=== PATIENT | female | born 1985 | race Caucasian/White ===

== ENCOUNTER 2017-09-11 12:00 | Emergency (ER) | payer MEDICAID, OTHER ==
[2017-09-11 12:00] VITALS: BMI 30.2
[2017-09-11 12:16] VITALS: BP 118/79; PULSE 83; RESP 18; TEMP 97.8; O2SAT 98
[2017-09-11] MEDS ORDERED: Tetracaine 0.5% Ophth (OR ONLY) OU STA (12:18)
[2017-09-11] MEDS ORDERED: Fluorescein 1 mg Ophthalmic Strip OS STA (12:18)
[2017-09-11] MEDS ORDERED: Fluorescein 1 mg Ophthalmic Strip ONE (12:28)
[2017-09-11] MEDS ORDERED: Tetracaine 0.5% Ophth (OR ONLY) ONE (12:29)
[2017-09-11] MEDS ORDERED: Ciprofloxacin 0.3% OPTH SOLN OS STA (12:46)
[2017-09-11] MEDS ORDERED: Ciprofloxacin 0.3% OPTH SOLN ONE (12:54)
--- NOTE | 2017-09-11 12:57 | C.PDOC ---
Time Seen by Provider: 09/11/17 12:15 Chief Complaint (Nursing): Eye Problem Past Medical History Family History: States: Unknown Family Hx - Social History Hx Tobacco Use: No Hx Alcohol Use: No Hx Substance Use: No - Immunization History Hx Tetanus Toxoid Vaccination: Yes Hx Influenza Vaccination: No Hx Pneumococcal Vaccination: No Vital Signs: Last Vital Signs Temp 97.8 F 09/11/17 12:10 Pulse 83 09/11/17 12:10 Resp 18 09/11/17 12:10 BP 118/79 09/11/17 12:10 Pulse Ox 98 09/11/17 13:04 - [facility] Procedures CLOSURE SKIN & SUBCUTANEOUS NEC (07/15/13) NASAL LACERATION SUTURE (11/15/13) TETANUS TOXOID ADMINIST (11/15/13) ED Course And Treatment O2 Sat by Pulse Oximetry: 98 Disposition - Disposition Disposition Time: 12:53 - Disposition Referrals: Bakari Rey MD [Staff Provider] - Disposition: HOME/ ROUTINE Condition: STABLE Additional Instructions: Follow up with PMD and Vascular Surgeon tomorrow after 8 am. Return to ED if feel worse. Prescriptions: Ciprofloxacin 0.3% [Ciloxan 0.3% Ophth SOLN] 1 drop OS Q1 #1 bottle Acetaminophen/Codeine [Tylenol/Codeine 300 MG/30 MG] 1 ea PO .Q4-6H #20 tab Instructions: How to Use Eye Drops Forms: [facility] (Nepali) - Clinical Impression Clinical Impression: Eye infection
--- NOTE | 2017-09-11 13:44 | C.PDOC ---
History Of Present Illness 32 y/o female presents to the ED complaining of 2-3 days of left eye pain and redness. Patient states prior to onset of symptoms she had slept in her contacts. She began using artificial tears with no improvement, prompting her to come to the ED for further evaluation. No visual changes. Time Seen by Provider: 09/11/17 12:15 Chief Complaint (Nursing): Eye Problem History Per: Patient History/Exam Limitations: no limitations Onset/Duration Of Symptoms: Days (x3) Current Symptoms Are (Timing): Still Present Wears Contact Lens?: Yes Past Medical History Reviewed: Historical Data, Nursing Documentation, Vital Signs Vital Signs: Last Vital Signs Temp 97.8 F 09/11/17 12:10 Pulse 83 09/11/17 12:10 Resp 18 09/11/17 12:10 BP 118/79 09/11/17 12:10 Pulse Ox 98 09/11/17 13:46 - Medical History PMH: No Chronic Diseases Surgical History: (x1) - [facility] Procedures CLOSURE SKIN & SUBCUTANEOUS NEC (07/15/13) NASAL LACERATION SUTURE (11/15/13) TETANUS TOXOID ADMINIST (11/15/13) Family History: States: Unknown Family Hx - Social History Hx Tobacco Use: Yes Hx Alcohol Use: No Hx Substance Use: No - Immunization History Hx Tetanus Toxoid Vaccination: Yes Hx Influenza Vaccination: No Hx Pneumococcal Vaccination: No Review Of Systems Except As Marked, All Systems Reviewed And Found Negative. Constitutional: Negative for: Fever, Chills Eyes: Positive for: Pain, Redness. Negative for: Vision Change Physical Exam - Physical Exam Appears: Non-toxic, No Acute Distress Skin: Normal Color, Warm, Dry Head: Atraumatic, Normacephalic Eye(s): bilateral: PERRL, EOMI, left: Other (mild erythema; Examination with Fluorescein small 2mm foreign body vs ulcer at the bottom at 9 oclock of left eye) Nose: Normal Oral Mucosa: Moist Neurological/Psych: Oriented x3, Normal Speech ED Course And Treatment O2 Sat by Pulse Oximetry: 98 (RA) Pulse Ox Interpretation: Normal - Physician Consult Information Time Consulting Physician Contacted: 12:40 Physician Contacted: Bakari Rey Outcome Of Conversation: Instructed to start patient on ciprofloxacin eye drops and patient will follow up in the office tomorrow morning Disposition Discussed With : Bakari Rey Doctor Will See Patient In The: Office Counseled Patient/Family Regarding: Diagnosis, Need For Followup, Rx Given - Disposition Referrals: Bakari Rey MD [Staff Provider] - Disposition: HOME/ ROUTINE Disposition Time: 12:53 Condition: STABLE Additional Instructions: Follow up with PMD and Assistant Controller tomorrow after 8 am. Return to ED if feel worse. Prescriptions: Ciprofloxacin 0.3% [Ciloxan 0.3% Ophth SOLN] 1 drop OS Q1 #1 bottle Acetaminophen/Codeine [Tylenol/Codeine 300 MG/30 MG] 1 ea PO .Q4-6H #20 tab Instructions: How to Use Eye Drops Forms: [facility] (Icelandic) - POA Present On Arrival: None - Clinical Impression Clinical Impression: Eye infection - PA / INCOMING FREIGHT CLERK / Resident Statement MD/DO has reviewed & agrees with the documentation as recorded. - Scribe Statement The provider has reviewed the documentation as recorded by the Scribe (Nataly Back) All medical record entries made by the Scribe were at my direction and personally dictated by me. I have reviewed the chart and agree that the record accurately reflects my personal performance of the history, physical exam, medical decision making, and the department course for this patient. I have also personally directed, reviewed, and agree with the discharge instructions and disposition.
== END 2017-09-11 13:20 | disposition home or self-care (01) ==
LOC: C.ER 12:00
DX: H44.002 Unspecified purulent endophthalmitis, left eye (principal)

== ENCOUNTER 2018-06-02 19:59 | Emergency (ER) | payer MEDICAID ==
[2018-06-02 19:59] VITALS: BMI 30.2
[2018-06-02 20:13] VITALS: TEMP 98.2
--- NOTE | 2018-06-02 20:45 | C.PDOC ---
History Of Present Illness 33 year old female who is currently 17 weeks with prior history of miscarriage and ectopic presents to the ED complaining of vaginal bleeding. Reports bright red vaginal bleeding status post having intercourse with her significant other yesterday. Notes she continues bleeding today and now blood is thick, dark and coagulated. Also complains of mild discomfort to left lower quadrant that began today. Patient receives care at [facility] but has not received an ultrasound for the current . Denies any fever, chills, dysuria, hematuria, nausea, vomiting, shortness of breath, chest pain, back pain, or any other associated symptoms. Time Seen by Provider: 06/02/18 20:19 Chief Complaint (Nursing): Female Genitourinary History Per: Patient History/Exam Limitations: no limitations Onset/Duration Of Symptoms: Days (1) Current Symptoms Are (Timing): Still Present Quality Of Discomfort: Other (discomfort) Associated Symptoms: Urinary Symptoms. denies: Fever, Chills, Nausea, Vomiting, Diarrhea, Back Pain Past Medical History Reviewed: Historical Data, Nursing Documentation, Vital Signs Vital Signs: Last Vital Signs Temp 98.2 F 06/02/18 20:11 Pulse 100 H 06/02/18 20:11 Resp 20 06/02/18 20:11 BP 114/83 06/02/18 20:11 Pulse Ox 100 06/02/18 20:11 - Medical History PMH: No Chronic Diseases Surgical History: (x1) - [facility] Procedures CLOSURE SKIN & SUBCUTANEOUS NEC (07/15/13) NASAL LACERATION SUTURE (11/15/13) TETANUS TOXOID ADMINIST (11/15/13) Family History: States: No Known Family Hx - Social History Hx Tobacco Use: Yes Hx Alcohol Use: No Hx Substance Use: No - Immunization History Hx Tetanus Toxoid Vaccination: Yes Hx Influenza Vaccination: No Hx Pneumococcal Vaccination: No Review Of Systems Constitutional: Negative for: Fever, Chills Cardiovascular: Negative for: Chest Pain Respiratory: Negative for: Shortness of Breath Gastrointestinal: Positive for: Abdominal Pain. Negative for: Nausea, Vomiting, Diarrhea Genitourinary: Positive for: Vaginal Bleeding. Negative for: Dysuria, Hematuria Musculoskeletal: Negative for: Back Pain Physical Exam - Physical Exam Appears: Non-toxic, No Acute Distress Skin: Warm, Dry, No Rash Head: Normacephalic Eye(s): bilateral: Normal Inspection Nose: Normal Oral Mucosa: Moist Neck: Supple Chest: Symmetrical Cardiovascular: Rhythm Regular Respiratory: Normal Breath Sounds, No Rales, No Rhonchi, No Wheezing Gastrointestinal/Abdominal: Soft, No Tenderness, No Guarding, No Rebound Extremity: Bilateral: Atraumatic, Normal Color And Temperature, Normal ROM Neurological/Psych: Oriented x3 Gait: Steady ED Course And Treatment - Laboratory Results Result Diagrams: 06/02/18 20:44 06/02/18 20:44 Lab Interpretation: Normal (Blood type O+) O2 Sat by Pulse Oximetry: 100 (RA) Pulse Ox Interpretation: Normal - CT Scan/US Pelvic US Other Rad Studies (CT/US): Read By Radiologist, Radiology Report Reviewed CT/US Interpretation: OBSTETRICAL ULTRASOUND. INDICATION: OB screening. Bleeding. FINDINGS: A single live intrauterine gestation was identified with a heart rate of 140 bpm. The amniotic fluid index was normal measuring 10.61 cm. The placenta was posterior fundal, without evidence of placenta previa. The fetus was in a variable position. The cervix measures 4.1 cm in length and is closed. The head, stomach, and cord insertion site appear unremarkable. The extremities were not fully visualized. BIOMETRIC MEASUREMENTS. BPD 3.46 cm. HC 11.20 cm. AC 13.16 cm. FL 2.35 cm. IMPRESSION: 1. Single live fetus based on today's measurements at 16 weeks 6 days, with estimated due date of 11/11 2018. 2. No abnormality detected on limited evaluation of the anatomy. . Electronically signed on Jun 02, 2018 11:02:31 PM EST by: Rodney Rowley M.D., BHUPINDER Certified By ABR & CBCCT. 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 Return to the ED for any increased bleeding or pain. Avoid putting anything in your vagina. Instructions: Bleeding With Forms: [facility] (Singaporean) - Clinical Impression Clinical Impression: Vaginal bleeding during - Scribe Statement The provider has reviewed the documentation as recorded by the Scribe Melissa Paneque All medical record entries made by the Sharla were at my direction and personally dictated by me. I have reviewed the chart and agree that the record accurately reflects my personal performance of the history, physical exam, medical decision making, and the department course for this patient. I have also personally directed, reviewed, and agree with the discharge instructions and disposition.
[2018-06-02 20:47] LABS: BASO # 0.1 K/uL (0.0-0.2); BASO % 0.8 % (0.0-2.0); EOS # 0.1 K/uL (0.0-0.7); EOS % 1.2 % (0.0-4.0); HEMOGLOBIN 12.2 g/dL (11.0-16.0); LYMPH # 2.2 K/uL (1.0-4.3); LYMPH % 21.7 % (20.0-40.0); MEAN CELL VOLUME 94.4 fL (81.0-99.0); MEAN CORPUSCULAR HEMOGLOBIN 32.2 pg (27.0-31.0); MEAN CORPUSCULAR HGB CONC 34.1 g/dL (33.0-37.0); MEAN PLATELET VOLUME 9.9 fL (7.2-11.7); MONO # 0.7 K/uL (0.0-0.8); MONO % 6.6 % (0.0-10.0); NEUT # 6.9 K/uL (1.8-7.0); NEUT % 69.7 % (50.0-75.0); RBC 3.79 Mil/uL (3.80-5.20); RED CELL DISTRIBUTION WIDTH 13.9 % (11.5-14.5)
[2018-06-02 21:00] LABS: ALB/GLOB RATIO 1.2 (1.0-2.1); ALBUMIN 3.7 g/dL (3.5-5.0); ALT/SGPT 18 U/L (9-52); AST/SGOT 14 U/L (14-36); BLOOD UREA NITROGEN 11 mg/dL (7-17); CALCIUM 8.8 mg/dl (8.6-10.4); GFR NON-AFRICAN AMERICAN > 60
[2018-06-02 23:29] VITALS: BP 110/70; PULSE 80; RESP 14; O2SAT 99
--- NOTE | 2018-06-03 10:35 | US ---
Date of service: 06/02/2018 PROCEDURE: Obstetrical ultrasound examination HISTORY: 17 wk bleeding COMPARISON: Not available TECHNIQUE: Transabdominal FINDINGS: Single live intrauterine gestation in variable presentation. The heart rate is 148 beats per minute. A grossly normal quantity of amniotic fluid is visualized. A posterior fundal placenta is identified. There is no evidence of placenta previa. The cervix is closed and measures 4.1 cm in length. biometry demonstrates a gestational age of 16 weeks 6 days. The SHANNAN by ultrasound is 11/11/2018. Limited review of anatomy demonstrates fluid distending the stomach and urinary bladder. The anterior abdominal wall is intact. A three-vessel umbilical cord was not documented at this time. No gross abnormality of the spine is evident. IMPRESSION: Single live intrauterine gestation of approximately 16 weeks 6 days without gross anatomic abnormality. Limited anatomic evaluation. Normal amniotic fluid volume. No evidence of placenta previa. Cervix long and closed. heart rate 140. The preliminary findings for this examination were reported by [facility] Radiology at 11:02 p.m. on 06/02/2018. There is concurrence of this report with the preliminary findings.
== END 2018-06-02 23:29 | disposition home or self-care (01) ==
LOC: C.ER 19:59
DX: O46.92 Antepartum hemorrhage, unspecified, second trimester (principal); Z3A.16 16 weeks gestation of pregnancy

== ENCOUNTER 2018-06-23 04:17 | Emergency (ER) | payer MEDICAID ==
[2018-06-23 04:17] VITALS: BMI 30.2
[2018-06-23] MEDS ORDERED: Sodium Chloride 0.9% 1,000 ML IV ONE ×2 (04:30→09:19)
--- NOTE | 2018-06-23 04:33 | C.PDOC ---
History Of Present Illness 33 y/o female, A4 (including history of 1 ectopic), presents to the ED complaining of sudden onset suprapubic/pelvic pain associated with vaginal bleeding since 3AM. Patient reports she is approximately 19 weeks . She notes that several weeks ago she had some vaginal spotting, which resolved on its own. Patient denies any falls or trauma. She denies any vomiting, diarrhea, fevers, chills, or dysuria. Time Seen by Provider: 06/23/18 04:23 Chief Complaint (Nursing): Abdominal Pain History Per: Patient History/Exam Limitations: no limitations Onset/Duration Of Symptoms: Hrs Current Symptoms Are (Timing): Still Present Severity: Severe Location Of Pain/Discomfort: Suprapubic Quality Of Discomfort: "Pain" Past Medical History Reviewed: Historical Data, Nursing Documentation, Vital Signs Vital Signs: Last Vital Signs Temp 97.5 F L 06/23/18 04:20 Pulse 85 06/23/18 04:20 Resp 16 06/23/18 04:20 BP 94/65 L 06/23/18 04:20 Pulse Ox 98 06/23/18 04:20 - Medical History PMH: No Chronic Diseases Surgical History: (x1) - [facility] Procedures CLOSURE SKIN & SUBCUTANEOUS NEC (07/15/13) NASAL LACERATION SUTURE (11/15/13) TETANUS TOXOID ADMINIST (11/15/13) Family History: States: Unknown Family Hx - Social History Hx Tobacco Use: Yes Hx Alcohol Use: No Hx Substance Use: No - Immunization History Hx Tetanus Toxoid Vaccination: Yes Hx Influenza Vaccination: No Hx Pneumococcal Vaccination: No Review Of Systems Constitutional: Negative for: Fever, Chills Eyes: Negative for: Vision Change Cardiovascular: Negative for: Light Headedness Respiratory: Negative for: Shortness of Breath Gastrointestinal: Positive for: Abdominal Pain. Negative for: Nausea, Vomiting, Diarrhea Genitourinary: Positive for: Vaginal Bleeding, Pelvic Pain. Negative for: Dysuria Neurological: Negative for: Weakness, Headache, Dizziness Physical Exam - Physical Exam Appears: Non-toxic, No Acute Distress Skin: Normal Color, Warm, Dry, No Rash Head: Atraumatic, Normacephalic Eye(s): bilateral: Normal Inspection, PERRL, EOMI Oral Mucosa: Moist Throat: No Erythema, No Exudate Neck: Normal ROM Chest: Symmetrical Cardiovascular: Rhythm Regular, No Murmur Respiratory: Normal Breath Sounds, No Rales, No Rhonchi, No Wheezing Gastrointestinal/Abdominal: Soft, Tenderness (suprapubic), No Guarding, No Rebound Back: Normal Inspection Extremity: Bilateral: Atraumatic, Normal Color And Temperature, Normal ROM Neurological/Psych: Oriented x3, Normal Speech ED Course And Treatment - Laboratory Results Result Diagrams: 06/23/18 04:54 06/23/18 04:54 O2 Sat by Pulse Oximetry: 98 (RA) Pulse Ox Interpretation: Normal Medical Decision Making Medical Decision Making: Plan: --Blood work --Urinalysis --2 mg IV Morphine --Transvag/Pelvic US Disposition - Disposition Disposition Time: 07:04 Condition: STABLE Forms: [facility] (German) - Clinical Impression Clinical Impression: Vaginal bleeding - PA / HURRICANE TRACKER / Resident Statement MD/DO has reviewed & agrees with the documentation as recorded. - Scribe Statement The provider has reviewed the documentation as recorded by the Scribe Nataly Back All medical record entries made by the Scribe were at my direction and personally dictated by me. I have reviewed the chart and agree that the record accurately reflects my personal performance of the history, physical exam, medical decision making, and the department course for this patient. I have also personally directed, reviewed, and agree with the discharge instructions and disposition. Physician Patient Turnover Patient Signed Over To: Delma Steve Handoff Comments: Pending Ultrasound and disposition
[2018-06-23 05:00] LABS: BASO # 0.1 K/uL (0.0-0.2); BASO % 0.8 % (0.0-2.0); EOS # 0.1 K/uL (0.0-0.7); EOS % 1.2 % (0.0-4.0); HEMOGLOBIN 11.9 g/dL (11.0-16.0); LYMPH # 2.1 K/uL (1.0-4.3); LYMPH % 19.9 % (20.0-40.0); MEAN CELL VOLUME 94.1 fL (81.0-99.0); MEAN CORPUSCULAR HEMOGLOBIN 31.2 pg (27.0-31.0); MEAN CORPUSCULAR HGB CONC 33.1 g/dL (33.0-37.0); MEAN PLATELET VOLUME 9.7 fL (7.2-11.7); MONO # 0.7 K/uL (0.0-0.8); MONO % 6.5 % (0.0-10.0); NEUT # 7.6 K/uL (1.8-7.0); NEUT % 71.6 % (50.0-75.0); RBC 3.81 Mil/uL (3.80-5.20); RED CELL DISTRIBUTION WIDTH 13.4 % (11.5-14.5); WHITE BLOOD COUNT 10.6 K/uL (4.8-10.8)
[2018-06-23 05:41] LABS: ALB/GLOB RATIO 1.2 (1.0-2.1); ALBUMIN 3.8 g/dL (3.5-5.0); ALT/SGPT 17 U/L (9-52); AST/SGOT 16 U/L (14-36); BLOOD UREA NITROGEN 8 mg/dL (7-17); CALCIUM 8.4 mg/dl (8.6-10.4); GFR NON-AFRICAN AMERICAN > 60
[2018-06-23 05:42] LABS: HCG,QUALITATIVE URINE POSITIVE (NEGATIVE)
[2018-06-23 05:44] LABS: SQUAMOUS EPITHIAL 1 /hpf (0-5); URINE BACTERIA RARE (<OCC); URINE BILIRUBIN NEGATIVE (NEGATIVE); URINE BLOOD 3+ (NEGATIVE); URINE CLARITY Clear (Clear); URINE COLOR Yellow (YELLOW); URINE GLUCOSE (UA) NORMAL (Normal); URINE LEUKOCYTE ESTERASE TRACE Leu/uL (Negative); URINE PROTEIN NEGATIVE (NEGATIVE); URINE UROBILINOGEN NORMAL mg/dL (0.2-1.0)
[2018-06-23] MEDS ORDERED: Sodium Chloride 0.9% 1,000 ML ONE (09:30)
--- NOTE | 2018-06-23 10:36 | CP.PCM.CON ---
History of Present Illness - History of Present Illness History of Present Illness: 33 yo at 18+5 wks with EDC 11/19/18 presents with vaginal bleeding. Pt had episodes of mild to moderate bleeding yesterday at work associated with occasional cramping pain. 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 Pt stable, afebrile, vitals stable. TVUS consistent with GA and FHR +140s-150s. Past Patient History - Infectious Disease Hx of Infectious Diseases: None - Past Social History Smoking Status: Current Some Days Smoker - GENITOURINARY/GYNECOLOGICAL : 6 Para: 1 - PSYCHIATRIC Hx Substance Use: No - SURGICAL HISTORY Hx Surgeries: No Hx Section: Yes (X1) - ANESTHESIA Hx Anesthesia: No Hx Anesthesia Reactions: No Meds Allergies/Adverse Reactions: Allergies Allergy/AdvReac Type Severity Reaction Status Date / Time No Known Allergies Allergy Verified 06/02/18 20:13 Physical Exam - Constitutional Appears: Well - Respiratory Exam Respiratory Exam: NORMAL BREATHING PATTERN - Exam Additional comments: SSE: 3 cc old clotted blood in the vaginal vault, no active bleeding, cervix 1 cm SVE: cervix 1 cm, soft, posterior Results - Vital Signs Recent Vital Signs: Last Vital Signs Temp 97.5 F L 06/23/18 04:20 Pulse 91 H 06/23/18 09:05 Resp 20 06/23/18 09:05 BP 101/68 06/23/18 09:18 Pulse Ox 98 06/23/18 09:05 - Labs Result Diagrams: 06/23/18 04:54 06/23/18 04:54 Labs: Laboratory Results - last 24 hr 06/23/18 06/23/18 06/23/18 04:54 04:54 04:54 WBC 10.6 RBC 3.81 Hgb 11.9 Hct 35.8 MCV 94.1 MCH 31.2 H MCHC 33.1 RDW 13.4 Plt Count 227 MPV 9.7 Neut % (Auto) 71.6 Lymph % (Auto) 19.9 L Gladwin % (Auto) 6.5 Eos % (Auto) 1.2 Baso % (Auto) 0.8 Neut # (Auto) 7.6 H Lymph # (Auto) 2.1 Gladwin # (Auto) 0.7 Eos # (Auto) 0.1 Baso # (Auto) 0.1 Sodium 134 Potassium 3.8 Chloride 105 Carbon Dioxide 21 L Anion Gap 12 BUN 8 Creatinine 0.4 L Est GFR ( Amer) > 60 Est GFR (Non-Af Amer) > 60 Random Glucose 91 Calcium 8.4 L Total Bilirubin 0.2 AST 16 ALT 17 Alkaline Phosphatase 92 Total Protein 6.8 Albumin 3.8 Globulin 3.0 Albumin/Globulin Ratio 1.2 Beta HCG, Quant 3560.40 Urine Color Urine Clarity Urine pH Ur Specific [place] Urine Protein Urine Glucose (UA) Urine Ketones Urine Blood Urine Nitrate Urine Bilirubin Urine Urobilinogen Ur Leukocyte Esterase Urine WBC (Auto) Urine RBC (Auto) Ur Squamous Epith Cells Urine Bacteria Urine HCG, Qual Blood Type O POSITIVE Antibody Screen Negative 06/23/18 05:33 WBC RBC Hgb Hct MCV MCH MCHC RDW Plt Count MPV Neut % (Auto) Lymph % (Auto) Gladwin % (Auto) Eos % (Auto) Baso % (Auto) Neut # (Auto) Lymph # (Auto) Gladwin # (Auto) Eos # (Auto) Baso # (Auto) Sodium Potassium Chloride Carbon Dioxide Anion Gap BUN Creatinine Est GFR ( Amer) Est GFR (Non-Af Amer) Random Glucose Calcium Total Bilirubin AST ALT Alkaline Phosphatase Total Protein Albumin Globulin Albumin/Globulin Ratio Beta HCG, Quant Urine Color Yellow Urine Clarity Clear Urine pH 7.0 Ur Specific [place] 1.012 Urine Protein Negative Urine Glucose (UA) Normal Urine Ketones Negative Urine Blood 3+ H Urine Nitrate Negative Urine Bilirubin Negative Urine Urobilinogen Normal Ur Leukocyte Esterase Trace Urine WBC (Auto) 5 Urine RBC (Auto) 17 H Ur Squamous Epith Cells 1 Urine Bacteria Rare Urine HCG, Qual Positive Blood Type Antibody Screen Assessment & Plan - Assessment and Plan (Free Text) Plan: A/P: 33 yo IUP at 18+5 wks with vaginal bleeding and threatened - stable, afebrile - threatened AB - no active bleeding - FHR via TVUS 140-150s - cervix 1/soft/posterior - 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
[2018-06-23 11:02] VITALS: BP 99/63; PULSE 92; RESP 16; TEMP 98.3; O2SAT 100
--- NOTE | 2018-06-23 16:18 | US ---
Indication: PREG, VAG BLEED HX OF ECTOPIC Comparison: OB limited ultrasound 06/02/18 Technique: Real-time ultrasound was performed through the pelvis. Findings: There is a single living fetus in breech presentation. Posterior placenta. The placenta is not previa. There are no adnexal masses or cysts evident. cervix length measures approximately 1.9 cm. The study was performed for emergent evaluation and the whole anatomic survey of the fetus was not performed. This should be performed on an outpatient elective basis as clinically warranted. Measurements and calculations: Fetus has a composite sonographic age of 19 weeks 2 days. This calculation is based on the biparietal diameter, head circumference, abdominal circumference, and femur length. Estimated heart rate 150.2 beats per min. Estimated weight 295.8 g. Impression: Cervix appears shortened measuring approximately 1.9 cm. Limited submitted views of the cervix. Recommend repeat study to assess changes in the cervical os which is suspected open. Single living fetus with a composite sonographic age of 19 weeks 2 days. Estimated heart rate 150.2 beats per min. Additional findings as above. Preliminary impression was provided by DENNY Longoria. Findings discussed with Delma Steve on 06/23/18 at 4:12 p.m.
== END 2018-06-23 11:16 | disposition home or self-care (01) ==
LOC: C.ER 04:17
DX: O20.0 Threatened abortion (principal); O46.92 Antepartum hemorrhage, unspecified, second trimester; Z3A.19 19 weeks gestation of pregnancy
CPT/HCPCS: 76815; 80053; 81001; 84702; 84703; 85025; 86850; 86900; 96361; 96374; 96376; 99285; J2270; J7030

== ENCOUNTER 2018-11-04 15:12 | Emergency (ER) | payer MEDICAID ==
[2018-11-04 15:20] VITALS: BMI 34.0
[2018-11-04 15:22] VITALS: TEMP 98.5; O2SAT 99
[2018-11-04] MEDS ORDERED: Acetaminophen-Codeine 300/30 mg Tab PO STA (15:54)
--- NOTE | 2018-11-04 16:04 | C.PDOC ---
History Of Present Illness 33-year-old female presents to the emergency department with complaints of left lower dental pain and gum swelling, worse yesterday. Patient states that she noted gum bleeding after brushing her teeth this morning. Patient states that she attempted to make a dental appointment but is waiting for insurance approval. In the meantime patient is taking OTC Motrin 400 to 600 mg with no relief. Patient denies facial trauma. Time Seen by Provider: 11/04/18 15:31 Chief Complaint (Nursing): Dental Pain History Per: Patient History/Exam Limitations: no limitations Onset/Duration Of Symptoms: Days (1) Current Symptoms Are (Timing): Still Present Quality: Positive for: "Pain" Past Medical History Reviewed: Historical Data, Nursing Documentation, Vital Signs Vital Signs: Last Vital Signs Temp 98.5 F 11/04/18 15:18 Pulse 88 11/04/18 15:18 Resp 17 11/04/18 15:18 BP 119/83 11/04/18 15:18 Pulse Ox 99 11/04/18 15:18 Primary Care Provider: Candelaria Daly - Medical History PMH: No Chronic Diseases Surgical History: (x1) - [facility] Procedures CLOSURE SKIN & SUBCUTANEOUS NEC (07/15/13) NASAL LACERATION SUTURE (11/15/13) TETANUS TOXOID ADMINIST (11/15/13) Family History: States: No Known Family Hx - Social History Hx Tobacco Use: Yes Hx Alcohol Use: No Hx Substance Use: No - Immunization History Hx Tetanus Toxoid Vaccination: Yes Hx Influenza Vaccination: Yes (02/2018) Hx Pneumococcal Vaccination: No Review Of Systems Except As Marked, All Systems Reviewed And Found Negative. Constitutional: Negative for: Fever, Chills ENT: Positive for: Mouth Pain (left lower dental pain) Cardiovascular: Negative for: Chest Pain Respiratory: Negative for: Cough, Shortness of Breath Gastrointestinal: Negative for: Nausea, Vomiting, Abdominal Pain, Diarrhea Musculoskeletal: Negative for: Neck Pain Neurological: Negative for: Weakness, Numbness Physical Exam - Physical Exam Appears: Non-toxic, No Acute Distress Skin: Normal Color, Warm, Dry Head: Atraumatic, Normacephalic, No Swelling (facial), Other Eye(s): bilateral: Normal Inspection Oral Mucosa: Moist Tongue: Normal Appearing Lips: Normal Appearing Teeth: Caries (to the left lower posterior molar with 2 cavities), Other (3rd left lower molar impacted ) Gingiva: Erythema (left lower molars), Swelling (near the 3rd left lower molar), No Other (no active bleeding, fluctuant mass) Neck: Normal, Supple, No Other (swelling) Chest: Symmetrical Neurological/Psych: Oriented x3, Normal Speech, Normal Cognition ED Course And Treatment O2 Sat by Pulse Oximetry: 99 (RA) Pulse Ox Interpretation: Normal Progress Note: Plan: Penicillin 500mg PO. Tylenol Codeine 2ea PO. Patient instructed to f/u with a dentist. Disposition Counseled Patient/Family Regarding: Need For Followup, Rx Given - Disposition Referrals: Dental office, Dentist [Other] Disposition: HOME/ ROUTINE Disposition Time: 16:02 Condition: STABLE Additional Instructions: Please follow up with a dentist Take medications as directed Return to ER if worse Prescriptions: Acetaminophen with Codeine [Tylenol with Codeine #3 Tablet] 2 each PO PRN PRN #10 tablet PRN Reason: Pain, Moderate (4-7) Ibuprofen [Motrin Tab] 800 mg PO QID #30 tab Penicillin VK [Penicillin VK Tab] 2 tab PO BID #28 tab Instructions: Tooth Abscess (DC) Forms: [employer] ([place]) - Clinical Impression Clinical Impression: Dental abscess, Dental caries - PA / [employer] / Resident Statement MD/DO has reviewed & agrees with the documentation as recorded. - Scribe Statement The provider has reviewed the documentation as recorded by the Scribe (Yoan Teixeira) All medical record entries made by the Scribe were at my direction and personally dictated by me. I have reviewed the chart and agree that the record accurately reflects my personal performance of the history, physical exam, medical decision making, and the department course for this patient. I have also personally directed, reviewed, and agree with the discharge instructions and disposition.
[2018-11-04] MEDS ORDERED: Acetaminophen-Codeine 300/30 mg Tab PO ONE (16:11)
[2018-11-04 16:16] VITALS: BP 125/85; PULSE 100; RESP 20
== END 2018-11-04 16:15 | disposition home or self-care (01) ==
LOC: C.ER 15:12
DX: K04.7 Periapical abscess without sinus (principal); K02.9 Dental caries, unspecified